=== PATIENT | female | born 2000 | race Caucasian/White ===

== ENCOUNTER 2022-06-23 07:53 | Inpatient (IN) | payer BC ==
[~2022-06-23] VITALS: Ht 165.1 cm; Wt 86.8 kg
[2022-06-28] VITALS (34 sets, daily range): BP systolic 117–150; BP diastolic 56–96; PULSE 59–88; TEMP 97.9–98.1
[2022-06-28] MEDS ORDERED: PRENATAL TABLET PO (08:59)
[2022-06-28 09:59] LABS: BASO % 0.3 % (0.0-2.0); EOS # 0.1 K/mm3 (0.0-0.7); EOS % 0.7 % (0.0-4.0); GRAN # 8.1 K/mm3 (1.4-6.5); GRAN % 75.6 % (42.2-75.2); HEMOGLOBIN 12.4 g/dl (12.5-16.0); LYMPH # 1.7 K/mm3 (1.2-3.4); LYMPH % 16.2 % (20.0-51.0); MEAN CELL VOLUME 94 fl (80.0-100.0); MEAN CORPUSCULAR HEMOGLOBIN 32 pg (27-31); MEAN CORPUSCULAR HGB CONC 34 g/dl (33.0-37.0); MEAN PLATELET VOLUME 12.8 fl (7.4-10.4); MONO # 0.7 K/mm3 (0.1-0.6); MONO % 6.8 % (1.7-9.3); PLATELET COUNT 245 K/mm3 (130-400); RED BLOOD COUNT 3.91 M/mm3 (4.10-5.30); REDCELL DISTRIBUTION WIDTH-CV 12.7 % (11.5-14.5)
[2022-06-28 10:06] LABS: HEMATOCRIT 36.8 % (37.0-47.0)
--- NOTE | 2022-06-28 19:45 | NUR ---
PT UP TO BATHROOM VIA [facility]RE[facility] STEADY, ABLE TO VOID 500MLS WITHOUT DIFFICULTY. ASSISTED WITH PERICARE, PERIPAD AND MESH UNDERWEAR APPLIED. EPIDURAL REMOVED, BLUE TIP INTACT. CLEAN GOWN APPLIED. PT TO VIA [facility] STEADY, ORIENTED TO ROOM, DENIES PAIN.
[2022-06-29 00:35] VITALS: BP 122/71; PULSE 75; TEMP 98.2
[2022-06-29 05:00] VITALS: BP 115/71; PULSE 79; TEMP 98.3
[2022-06-29] MEDS ORDERED: IBU600 MG PO (07:46)
[2022-06-29 08:06] VITALS: BP 119/64; PULSE 68; TEMP 97.9
--- NOTE | 2022-06-29 12:09 | NUR ---
Initial visit; Parents thanked Slab Worker for offering congratulations and God's blessings for the of their daughter. Slab Worker thanked family for choosing [place].
[2022-06-29 16:50] VITALS: BP 121/75; PULSE 88; TEMP 97.8
[2022-06-29 21:00] VITALS: BP 124/73; PULSE 66; TEMP 98
[2022-06-30 08:22] VITALS: BP 121/91; PULSE 83; TEMP 97.8
== END 2022-06-30 12:15 | disposition home or self-care (01) | DRG 807 ==
LOC: OB 06-28 07:53 → LDR 06-28 08:35 → OB 06-28 08:35
PROVIDERS: ADMIT Obstetrics & Gynecology
PROC: 10E0XZZ Delivery of Products of Conception, External Approach (ICD-10-PCS; principal; 2022-06-28)
PROC: 0KQM0ZZ Repair Perineum Muscle, Open Approach (ICD-10-PCS; 2022-06-28)
PROC: 3E033VJ Introduction of Other Hormone into Peripheral Vein, Percutaneous Approach (ICD-10-PCS; 2022-06-28)
DX: O48.0 Post-term pregnancy (principal); Z37.0 Single live birth; Z3A.40 40 weeks gestation of pregnancy; O70.1 Second degree perineal laceration during delivery
CPT/HCPCS: J2405; J2590; J7120